=== PATIENT | male | born 1970 | race Caucasian/White ===

== ENCOUNTER 2017-12-01 16:11 | Emergency (ER) | payer MEDICAID ==
[~2017-12-01] VITALS: Ht 190.5 cm; Wt 90.9 kg
[2017-12-01 16:34] VITALS: BP 124/76
[2017-12-01] MEDS ORDERED: CIPR10DR RIGHT EAR (17:20)
[2017-12-01] MEDS ORDERED: TETanus/Pertussis (Acell)/Diphther VAC/PF (Tdap-Adult) 0.5ml syringe IMVAC ONE (17:25)
== END 2017-12-01 17:40 | disposition home or self-care (01) ==
LOC: ER 16:11
DX: S61.211A Laceration without foreign body of left index finger without damage to nail, initial encounter (principal); H60.91 Unspecified otitis externa, right ear; X58.XXXA Exposure to other specified factors, initial encounter; Y93.89 Activity, other specified; Y92.89 Other specified places as the place of occurrence of the external cause; Y99.8 Other external cause status
CPT/HCPCS: 12001; 90471; 90715; 99283

== ENCOUNTER 2018-09-01 15:30 | Emergency (ER) | payer MEDICAID ==
[~2018-09-01] VITALS: Ht 190.5 cm; Wt 90.9 kg
[2018-09-01] MEDS ORDERED: aspirin 81mg tab.chew PO ONE (15:45)
[2018-09-01] MEDS ORDERED: nitroGLYCERIN 0.4mg SUBLingual tab SL PRN (15:45)
[2018-09-01 16:58] LABS: BASOPHILS % (AUTO) 0.5 % (0-1); EOSINOPHILS # (AUTO) 0.2 X10'3 (0-0.9); EOSINOPHILS % (AUTO) 2.6 % (0-6); HEMATOCRIT 43.9 % (42.0-52.0); HEMOGLOBIN 14.5 g/dl (14.0-17.9); LYMPHOCYTES # (AUTO) 1.7 X10'3 (1.1-4.8); LYMPHOCYTES % (AUTO) 22.6 % (21-51); MEAN CORPUSCULAR HEMOGLOBIN 30.4 PG (27.0-31.0); MEAN CORPUSCULAR VOLUME 92.1 FL (78-98); MEAN PLATELET VOLUME 9.1 FL (7.4-10.4); MONOCYTES # (AUTO) 0.5 X10'3 (0-0.9); MONOCYTES % (AUTO) 6.7 % (2-12); NEUTROPHILS # (AUTO) 5.2 X10'3 (1.8-7.7); NEUTROPHILS % (AUTO) 67.6 % (42-75); PLATELET COUNT 228 X10'3 (140-440); RED BLOOD COUNT 4.77 X10'6 (4.70-6.10); RED CELL DISTRIBUTION WIDTH 12.6 % (11.5-14.5); WHITE BLOOD COUNT 7.6 X10'3 (4.5-11.0)
[2018-09-01 17:16] LABS: ALANINE AMINOTRANSFERASE 20 U/L (12-78); ALBUMIN 3.6 G/DL (3.4-5.0); ALBUMIN/GLOBULIN RATIO 1.1 (1.1-1.5); ALKALINE PHOSPHATASE 70 IU/L (46-116); ANION GAP 7 (8-16); ASPARTATE AMINO TRANSFERASE 11 U/L (10-37); BILIRUBIN,TOTAL 0.3 MG/DL (0.1-1.0); BLOOD UREA NITROGEN 18 MG/DL (7-18); BUN/CREATININE RATIO 18.9 (5.4-32.0); CALCIUM 8.3 MG/DL (8.5-10.1); CHLORIDE 104 MMOL/L (99-107); CREATININE 0.95 MG/DL (0.60-1.10); GLUCOSE 91 MG/DL (70-104); POTASSIUM 4.5 MMOL/L (3.5-5.1); SODIUM 139 MMOL/L (135-145); TOTAL CARBON DIOXIDE 27.8 MMOL/L (24-32); eGFR 84 ML/MIN
[2018-09-01 17:20] LABS: PARTIAL THROMBOPLASTIN TIME 26 SECONDS (22-32); PROTHROMBIN TIME 9.9 SECONDS (9.0-12.0)
--- NOTE | 2018-09-01 17:28 | NUR ---
pt resting quietly on Gary malone at bedside to reevaluate pt
[2018-09-01 17:50] VITALS: BP 102/67
== END 2018-09-01 17:51 | disposition home or self-care (01) ==
LOC: ER 15:31
DX: R07.89 Other chest pain (principal); G89.29 Other chronic pain; R20.2 Paresthesia of skin
CPT/HCPCS: 36415; 71045; 80053; 83880; 84484; 85025; 85610; 85730; 93005; 99284

== ENCOUNTER 2018-12-15 17:45 | Emergency (ER) | payer MEDICAID ==
[~2018-12-15] VITALS: Ht 190.5 cm; Wt 93.0 kg
[2018-12-15 17:54] VITALS: BP 101/67
[2018-12-15] MEDS ORDERED: AMOX500C2 PO (20:10)
== END 2018-12-15 20:43 | disposition home or self-care (01) ==
LOC: ER 17:45
DX: H72.91 Unspecified perforation of tympanic membrane, right ear (principal); H66.91 Otitis media, unspecified, right ear; G89.29 Other chronic pain; Z79.899 Other long term (current) drug therapy
CPT/HCPCS: 99283

== ENCOUNTER 2020-01-07 23:27 | Emergency (ER) | payer MEDICAID ==
[~2020-01-07] VITALS: Ht 190.5 cm; Wt 90.9 kg
[2020-01-08] MEDS ORDERED: ketorolac trometh inj. 60 MG/2 ML VIAL IM ONE (00:40)
[2020-01-08 01:00] VITALS: BP 146/110
== END 2020-01-08 01:03 | disposition home or self-care (01) ==
LOC: ER 23:27
DX: M25.511 Pain in right shoulder (principal); G89.29 Other chronic pain; F17.200 Nicotine dependence, unspecified, uncomplicated
CPT/HCPCS: 73030; 96372; 99283; J1885

== ENCOUNTER 2020-02-21 20:51 | Emergency (ER) | payer MEDICAID ==
[~2020-02-21] VITALS: Ht 190.5 cm; Wt 93.2 kg
--- NOTE | 2020-02-21 21:39 | NUR ---
Pt has multiple medical complaints. States feet are swollen, possible infected abrasions on numerous fingers and has two broken teeth which he believes may have caused a systemic infection. No N/V, diarrhea or fevers.
[2020-02-21 21:40] VITALS: BP 119/75
== END 2020-02-21 21:59 | disposition home or self-care (01) ==
LOC: ER 20:51
DX: K08.89 Other specified disorders of teeth and supporting structures (principal); G89.29 Other chronic pain; F17.200 Nicotine dependence, unspecified, uncomplicated
CPT/HCPCS: 99281; 99282

== ENCOUNTER 2021-10-28 12:25 | Emergency (ER) | payer MEDICAID ==
[~2021-10-28] VITALS: Ht 190.5 cm; Wt 72.7 kg
[2021-10-28 13:20] LABS: BASOPHILS # (AUTO) 0.1 X10'3 (0-0.2); BASOPHILS % (AUTO) 0.9 % (0-1); EOSINOPHILS # (AUTO) 0.1 X10'3 (0-0.9); EOSINOPHILS % (AUTO) 1.7 % (0-6); LYMPHOCYTES # (AUTO) 1.8 X10'3 (1.1-4.8); MEAN CORPUSCULAR HEMOGLOBIN 30.8 PG (27.0-31.0); MEAN CORPUSCULAR VOLUME 90.8 FL (78-98); MEAN PLATELET VOLUME 8.3 FL (7.4-10.4); MONOCYTES # (AUTO) 0.8 X10'3 (0-0.9); MONOCYTES % (AUTO) 9.2 % (2-12); NEUTROPHILS # (AUTO) 5.4 X10'3 (1.8-7.7); NEUTROPHILS % (AUTO) 66.2 % (42-75); PLATELET COUNT 255 X10'3 (140-440); RED BLOOD COUNT 4.85 X10'6 (4.70-6.10); RED CELL DISTRIBUTION WIDTH 16.3 % (11.5-14.5); WHITE BLOOD COUNT 8.2 X10'3 (4.5-11.0)
[2021-10-28 13:37] LABS: ALANINE AMINOTRANSFERASE 50 U/L (12-78); ALBUMIN 3.5 G/DL (3.4-5.0); ALBUMIN/GLOBULIN RATIO 0.9 (1.1-1.5); ANION GAP 8 (8-16); ASPARTATE AMINO TRANSFERASE 15 U/L (10-37); BILIRUBIN,TOTAL 0.4 MG/DL (0.1-1.0); BLOOD UREA NITROGEN 19 MG/DL (7-18); BUN/CREATININE RATIO 23.2 (5.4-32.0); CALCIUM 8.9 MG/DL (8.5-10.1); CHLORIDE 103 MMOL/L (99-107); CREATININE 0.82 MG/DL (0.60-1.10); GLUCOSE 104 MG/DL (70-104); POTASSIUM 4.7 MMOL/L (3.5-5.1); SODIUM 142 MMOL/L (135-145); TOTAL CARBON DIOXIDE 30.9 MMOL/L (24-32); TOTAL PROTEIN 7.3 G/DL (6.4-8.2); eGFR > 90 ML/MIN
[2021-10-28 13:46] LABS: ALKALINE PHOSPHATASE 78 IU/L (46-116)
[2021-10-28 15:39] VITALS: BP 118/87
== END 2021-10-28 15:50 | disposition home or self-care (01) ==
LOC: ER 12:25
DX: R07.89 Other chest pain (principal); R11.0 Nausea; G89.29 Other chronic pain; F17.200 Nicotine dependence, unspecified, uncomplicated
CPT/HCPCS: 36415; 71045; 80053; 83880; 84484; 85025; 93005; 99285